=== PATIENT | female | born 1960 | race African-American/Black ===

== ENCOUNTER 2019-05-24 08:58 | Day surgery (SDC) | payer OTHER ==
[2019-05-23 13:40] VITALS: BMI 41.5
--- NOTE | 2019-05-24 08:13 | HP ---
HISTORY OF PRESENT ILLNESS: This is a 59-year-old female with osteoarthritis and takes meloxicam, Juan Aspirin, and also ibuprofen on a regular basis. She developed black tarry stool a couple of weeks ago. She also had abdominal pain over the epigastric area. There was no nausea or vomiting. She had back pain for several days and stools are back to normal color. She was seen by Dr. Shabana Montgomery in [place]. She had a CBC done, which showed mild anemia. The hemoglobin is 9.6, baseline hemoglobin is 12. She also had a stool for occult blood which came back positive. The patient already stopped the meloxicam, Juan Aspirin, and also ibuprofen. She only takes Tylenol now. The patient comes for EGD because of history of black tarry stools and anemia. ALLERGIES: NONE. SOCIAL HISTORY: The patient does not smoke or drink alcohol. MEDICAL ILLNESS: 1. Obesity. 2. Osteoarthritis. 3. Hypertension. 4. Hypothyroidism. 5. Hyperlipidemia. 6. History of thyroidectomy for goiter many years ago. She was also found to have irregular heart rate and was referred to Dr. Wade and has a appointment on June 01. She had no chest pain. PHYSICAL EXAMINATION: GENERAL: The patient is obese, appears comfortable. VITAL SIGNS: Stable. Pulse is 96, blood pressure is 180/80 Weight is 254 pounds. HEENT: Conjunctivae clear. NECK: Supple. No adenitis or thyromegaly noted. CARDIOVASCULAR: First and second heart sounds heard. LUNGS: Clear to auscultation. ABDOMEN: Soft. Abdomen is tender over the epigastric area. There is no rebound or guarding. No organomegaly. No masses. Bowel sounds are normal. ADMITTING DIAGNOSIS: A 59-year-old female with osteoarthritis and previously had taken meloxicam, Juan Aspirin, and ibuprofen. She had a black tarry stool about a couple of weeks ago. Hemoglobin dropped from 12 to 9.6. Stools are back to normal color. PLAN: EGD. I believe she is to have colonoscopy sometime in near future because of age for evaluation of occult GI bleeding and also for colon cancer screening. Job ID: [id number] [facility]
[2019-05-24] MEDS ORDERED: PROPOFOL 200 MG/20 ML VIAL ONE (11:09)
--- NOTE | 2019-05-24 14:32 | OP ---
DATE OF PROCEDURE: 05/24/2019 PROCEDURE PERFORMED: Esophagogastroduodenoscopy with biopsy. PREOPERATIVE DIAGNOSIS: A 59-year-old female with black tarry stool 2 weeks ago and mild drop in blood count. The last hemoglobin was 9.8. The patient was taking meloxicam, Juan aspirin, ibuprofen, which has been discontinued. She comes for esophagogastroduodenoscopy. POSTOPERATIVE DIAGNOSES: 1. Large ulceration at the distal esophagus just above the gastroesophageal junction. 2. Hiatal hernia. 3. Duodenitis. DESCRIPTION OF PROCEDURE: The patient was placed on her left lateral position and was given sedation by Anesthesia Department. Then, Pentax video gastroscope under direct vision passed down the oropharynx past the GE junction into the stomach, and subsequently, into descending duodenum. The esophageal mucosa appeared normal throughout. However, at the GE junction, the patient was found to have a large ulceration probably measuring about 2 cm. The base was somewhat erythematous. A biopsy was obtained from the area. She had a hiatal hernia. Retroflexion failed to show any pathology in fundus or cardia. The gastric body, gastric antrum, no lesion seen. The incisura angularis, no pathology seen. The duodenal bulb showed patchy mucosal edema and erythema. The descending duodenum, no pathology. The stomach decompressed and the scope removed. RECOMMENDATION: 1. Avoid NSAID and also aspirin. 2. Start the patient on omeprazole 40 once a day. 3. To come back to clinic in 2 weeks. Job ID: [id number]
== END 2019-05-24 13:05 | disposition home or self-care (01) ==
LOC: SDC 08:58
PROVIDERS: ATTEND Internal Medicine Gastroenterology
PROC: 0DB58ZX Excision of Esophagus, Via Natural or Artificial Opening Endoscopic, Diagnostic (ICD-10-PCS; principal; 2019-05-24)
DX: K22.11 Ulcer of esophagus with bleeding (principal); K44.9 Diaphragmatic hernia without obstruction or gangrene; K29.81 Duodenitis with bleeding; I10 Essential (primary) hypertension; E03.9 Hypothyroidism, unspecified; E78.5 Hyperlipidemia, unspecified; M19.90 Unspecified osteoarthritis, unspecified site; E66.9 Obesity, unspecified; Z68.41 Body mass index [BMI] 40.0-44.9, adult
CPT/HCPCS: 88305; 88312; 88313; J2704